=== PATIENT | female | born 1945 | race Caucasian/White ===

== ENCOUNTER → 2016-11-23 | Outpatient (CLI) | payer OTHER ==
[~2016-11-23] MED LIST: ATOR-24 PO; COEN75CA PO; FAMO40TA6 PO; METF-384 PO; MISCCAP80 PO; PANT40TA PO; SERT-234 PO
[2016-11-23 14:43] LABS: ESTIMATED AVERAGE GLUCOSE 148 mg/dl; HA1C FLAG Normal (Normal)
== END | disposition home or self-care (01) ==
LOC: C.LAB 13:16
PROVIDERS: ATTEND Internal Medicine
DX: E11.9 Type 2 diabetes mellitus without complications (principal)

== ENCOUNTER → 2017-05-06 | Outpatient (CLI) | payer OTHER ==
[2017-05-06 12:17] LABS: BASO % 0.7 %; BASO ABS # 0.04 K/uL (0-0.2); COMPLETE YES; EOS % 5.6 %; HEMATOCRIT 32.5 % (37-47); IG% 0.2 %; LYMPH % 33.2 %; LYMPH ABS # 1.85 K/uL (1.2-3.4); MEAN CELL VOLUME 85.5 fL (80-100); MEAN CORPUSCULAR HEMOGLOBIN 26.6 pg (25-34); MEAN CORPUSCULAR HGB CONC 31.1 g/dl (32-36); MEAN PLATELET VOLUME 11.8 fL (7.4-10.4); MONO % 9.1 %; NEUT % 51.2 %; PLATELET COUNT 248 K/uL (130-400); WHITE BLOOD COUNT 5.58 K/uL (4.8-10.8)
[2017-05-06 12:34] LABS: ESTIMATED AVERAGE GLUCOSE 148 mg/dl; HA1C FLAG Normal (Normal)
[2017-05-06 13:34] LABS: ALT/SGPT 20 U/L (12-78); AST/SGOT 20 U/L (15-37); BLOOD UREA NITROGEN 18 mg/dl (7-18); BUN/CREATININE RATIO 15.3 (10-20); CALCIUM 9.2 mg/dl (8.5-10.1); CARBON DIOXIDE 29 mmol/L (21-32); CHLORIDE 107 mmol/L (98-107); CHOLESTEROL 204 mg/dl (0-200); GLUCOSE 114 mg/dl (70-99); POTASSIUM 4.3 mmol/L (3.5-5.1); SODIUM 141 mmol/L (136-145); TRIGLYCERIDES 116 mg/dl (0-150); VERY LOW DENSITY LIPOPROT CALC 23 mg/dl
[2017-05-06 13:45] LABS: ALB/GLOB RATIO 1.1 (0.9-2); ALKALINE PHOSPHATASE 68 U/L (45-117); CHOLESTEROL/HDL RATIO 3.6; HDL CHOLESTEROL 56 mg/dl; LDL CHOLESTEROL CALCULATED 125 mg/dl
== END | disposition home or self-care (01) ==
LOC: C.LAB 10:33
PROVIDERS: ATTEND Internal Medicine
DX: E11.9 Type 2 diabetes mellitus without complications (principal)

== ENCOUNTER → 2017-06-09 | Outpatient (CLI) | payer OTHER ==
--- NOTE | 2017-06-09 15:51 | DIAGNOSTIC IMAGING REPORT ---
TWO VIEW CHEST CLINICAL HISTORY: Bronchitis. FINDINGS: PA and lateral chest radiographs are compared to study dated 11/21/2015. The cardiomediastinal silhouette is unremarkable. The mitral annulus is densely calcified. There is mild atherosclerotic calcification of the thoracic aorta. Chronic interstitial thickening is similar to previous. No airspace consolidation or pleural effusion is identified. There is no pneumothorax. The skeletal structures are osteopenic. The bony thorax appears intact. IMPRESSION: No active disease in the chest. Electronically signed by: Virgilio Mosquera M.D. 06/09/2017 3:50 PM Dictated Date/Time: 06/09/2017 3:49 PM
== END | disposition home or self-care (01) ==
LOC: C.RADBC 15:19
PROVIDERS: ATTEND Internal Medicine
DX: J20.8 Acute bronchitis due to other specified organisms (principal)

== ENCOUNTER → 2017-06-14 | Outpatient (CLI) | payer OTHER ==
--- NOTE | 2017-06-14 16:09 | MAMMOGRAPHY REPORT ---
BILATERAL DIGITAL SCREENING MAMMOGRAM WITH CAD: 06/14/2017 CLINICAL HISTORY: Routine screening. Patient has no complaints. TECHNIQUE: Bilateral CC and MLO views were obtained. Current study was also evaluated with a Compute r Aided Detection (CAD) system. COMPARISON: Comparison is made to exams dated: 06/09/2016 mammogram, 06/04/2015 mammogram, 05/29/2014 m ammogram, 05/02/2013 mammogram, 04/12/2012 mammogram, and 03/30/2011 mammogram - [facility] enter. BREAST COMPOSITION: There are scattered areas of fibroglandular density in both breasts. FINDINGS: There is possible architectural distortion in the lateral, middle one third of the left br east, only seen on the CC view, for which additional spot compression tomosynthesis views and possibl e ultrasound are recommended. No other suspicious mass, architectural distortion or cluster of microcalcifications is seen bilatera lly. IMPRESSION: ACR BI-RADS CATEGORY 0: INCOMPLETE EVALUATION: NEED ADDITIONAL IMAGING EVALUATION The possible architectural distortion in the lateral left breast needs additional evaluation. The patient will be called to schedule an appointment. Approximately 10% of breast cancers are not detected with mammography. A negative mammographic report should not delay biopsy if a clinically suggestive mass is present. Molly Chino M.D. ay/:06/14/2017 15:33:37 Head Host/Hostess: Paloma QUIJANO(R)(M), [facility] letter sent: Addl Imaging 0 BI-RADS Code: ACR BI-RADS Category 0: Incomplete Evaluation: Need Additional Imaging Evaluation
== END | disposition home or self-care (01) ==
LOC: C.MAMM 13:30
PROVIDERS: ATTEND Internal Medicine
DX: Z12.31 Encounter for screening mammogram for malignant neoplasm of breast (principal); R92.8 Other abnormal and inconclusive findings on diagnostic imaging of breast

== ENCOUNTER → 2017-07-06 | Outpatient (CLI) | payer OTHER ==
--- NOTE | 2017-07-06 15:19 | MAMMOGRAPHY REPORT ---
UNILATERAL LEFT DIGITAL DIAGNOSTIC MAMMOGRAM TOMOSYNTHESIS AND TARGETED LEFT ULTRASOUND: 07/06/2017 CLINICAL HISTORY: 72-year-old woman called back from screening mammography for possible architectural distortion in the lateral left breast. TECHNIQUE: Spot compression left CC and MLO 2-D and tomosynthesis images were obtained. COMPARISON: Comparison is made to exams dated: 06/14/2017 mammogram, 06/09/2016 mammogram, 06/04/2015 m ammogram, 05/29/2014 mammogram, 05/02/2013 mammogram, and 04/12/2012 mammogram - [facility] enter. BREAST COMPOSITION: There are scattered areas of fibroglandular density in the left breast. FINDINGS: The supplemental spot compression tomosynthesis views of the left breast demonstrate efface ment of the questionable architectural distortion in the lateral, middle one third of the breast. No asymmetry, suspicious mass or focal area of distortion is seen. Targeted ultrasound was performed in the superior and lateral left breast. Sonographically normal ti ssue is seen without a discrete solid or cystic mass. No focal area of architectural distortion is a ppreciated in real-time scanning. IMPRESSION: ACR BI-RADS CATEGORY 2: BENIGN, TARGETED ULTRASOUND ACR BI-RADS CATEGORY 2: BENIGN Effacement of the possible architectural distortion in the lateral left breast, with supplemental spo t compression tomosynthesis images, and no suspicious sonographic correlate identified. This finding most likely represented normal overlapping tissue. There is no mammographic or targeted sonographic evidence of malignancy. A 1 year screening mammogram is recommended. The patient has been verbally notified of the results. Approximately 10% of breast cancers are not detected with mammography. A negative mammographic report should not delay biopsy if a clinically suggestive mass is present. Molly Chino M.D. ay/:07/06/2017 10:53:38 Acquisition Analyst: Brooklynn Mccollum, [facility] letter sent: Normal 1/2 BI-RADS Code: ACR BI-RADS Category 2: Benign Ultrasound BI-RADS: ACR BI-RADS Category 2: Benign
== END | disposition home or self-care (01) ==
LOC: C.MAMM 10:04
PROVIDERS: ATTEND Internal Medicine
DX: N64.89 Other specified disorders of breast (principal)

== ENCOUNTER → 2017-08-31 | Outpatient (CLI) | payer OTHER ==
[2017-08-31 14:15] LABS: ESTIMATED AVERAGE GLUCOSE 148 mg/dl; HA1C FLAG Normal (Normal)
== END | disposition home or self-care (01) ==
LOC: C.LABBC 11:07
PROVIDERS: ATTEND Internal Medicine
DX: E11.9 Type 2 diabetes mellitus without complications (principal)

== ENCOUNTER → 2017-09-29 | Outpatient (CLI) | payer OTHER ==
--- NOTE | 2017-09-29 15:41 | EXERCISE STRESS ECHO ---
*NOTICE TO RECEIVING REPUBLICAN AGENCY This information is strictly Confidential and protected under [place] law. [place] law prohibits you from making any further disclosure of this information unless further disclosure is expressly permitted by the written consent of the person to whom it pertains or is authorized by law. A general authorization for the release of medical or other information is not sufficient for this purpose. Hospital accepts no responsibility if the information is made available to any other person, INCLUDING THE PATIENT. Interpretation Summary * Name: CLEVELAND VILLEGAS Study Date: 09/29/2017 09:44 AM BP: 112/71 mmHg * Patient Location: [facility] HR: 81 * : 1945 (M/d/yyyy) Gender: Female Height: 63 in * Age: 72 yrs Ethnicity: [place] Weight: 144 lb * Ordering Physician: Augusto Hubbard * Referring Physician: Augusto Hubbard * Performed By: Lizzette Odom RDCS * * Reason For Study: CHEST PRESSURE * BSA: 1.7 m2 * -- Conclusions -- * Stress Echo: * 1. Negative stress echo for ischemia at 111 % MPHR. * 2. Negative exercise ECG for ischemia at 111 % MPHR. * 3. Appropriate blood pressure response to exercise. * 4. No arrhythmia. * 5. Study terminated due to fatigue. No chest pain reported. * 6. Good exercise tolerance. * Echo: * 1. Normal left ventricular size and systolic function. EF 60-65%. No regional wall motion abnormalities. No left ventricular hypertrophy. Type 1 diastolic dysfunction. * 2. No significant valvular abnormalities. * 3. Normal estimated right ventricular systolic pressure. * 4. No prior study available for comparison. Procedure Details * ECHOEX, CPT #[id number] * ECHO DOPPLER, CPT #[id number] * ECHO COLOR FLOW, CPT #[id number] Left Ventricle * The left ventricle is normal in size. * There is normal left ventricular wall thickness. * Left ventricular systolic function is normal. * Resting wall motion: Normal. Stress wall motion: Appropriate increase in Left ventricular systolic function and decrease in cavity size. No stress induced segmental wall motion abnormalities. * The left ventricular ejection fraction increases normally with stress. The left ventricular end-systolic cavity size reduces post-stress (normal response). The left ventricular wall motion with stress is normal. * No regional wall motion abnormalities noted. Right Ventricle * The right ventricle is normal in size and function. * The right ventricular systolic function is normal as assessed by tricuspid annular plane systolic excursion (TAPSE) (normal >1.5 cm). Atria * The left atrial size is normal. * Right atrial size is normal. * There is no evidence of atrial septal defect, but resolution does not allow assessment for a patent foramen ovale. Mitral Valve * There is moderate mitral annular calcification. * There is no mitral valve stenosis. * There is trace mitral regurgitation. Tricuspid Valve * The tricuspid valve is normal. * There is no tricuspid stenosis. * There is trace tricuspid regurgitation. Aortic Valve * The aortic valve is trileaflet. * The aortic valve is normal in structure and function. * No hemodynamically significant valvular aortic stenosis. * No aortic regurgitation is present. Pulmonic Valve * The pulmonary valve is inadequately visualized, but the Doppler data is adequate for interpretation. * Trace pulmonic valvular regurgitation. Great Vessels * The aortic root is normal size. * Ascending aorta of normal dimension * Aortic arch of normal dimension. * Normal IVC size and inspiratory collapse. Pericardium * There is no pericardial effusion. Stress Parameters * NSR at 73 bpm. * Stress ECG: No ST changes. No arrhythmias. * No arrhythmia were noted with stress. * Rest heart rate was '81' BPM. * Rest blood pressure was '112/71' * Maximum heart rate achieved was 166 bpm. * Maximum heart rate was 111 % of maximum age-predicted heart rate. * Maximum blood pressure was '175/87' * Total exercise time was '6:31' * Maximum exercise MET level achieved was '7.7' METS * Maximum treadmill speed was '3.40' miles per hour. * Maximum treadmill elevation was '14.00'% grade. * Exercise was terminated due to 'fatigue' * Normal blood pressure response to exercise. * No symptoms during exercise. Target heart rate achieved. MMode 2D Measurements and Calculations IVSd 1.1 cm IVSs 2.0 cm LVIDd 4.5 cm LVIDs 3.1 cm LVPWd 0.90 cm LVPWs 1.5 cm IVS/LVPW 1.2 FS 31.7 % EDV(Teich) 93.5 ml ESV(Teich) 37.6 ml EF(Teich) 59.8 % EDV(cubed) 92.5 ml ESV(cubed) 29.5 ml EF(cubed) 68.1 % % IVS thick 82.6 % % LVPW thick 70.5 % LV mass(C)d 151.2 grams LV mass(C)dI 89.9 grams/m\S\2 LV mass(C)s 212.6 grams LV mass(C)sI 126.4 grams/m\S\2 SV(Teich) 55.9 ml SI(Teich) 33.3 ml/m\S\2 SV(cubed) 63.0 ml SI(cubed) 37.5 ml/m\S\2 Ao root diam 3.0 cm Ao root area 6.9 cm\S\2 ACS 1.7 cm LA dimension 3.6 cm asc Aorta Diam 2.9 cm LA/Ao 1.2 LVOT diam 1.8 cm LVOT area 2.6 cm\S\2 LVAd ap4 27.2 cm\S\2 LVLd ap4 7.5 cm EDV(MOD-sp4) 80.5 ml EDV(sp4-el) 83.1 ml LVAs ap4 15.5 cm\S\2 LVLs ap4 6.0 cm ESV(MOD-sp4) 32.6 ml ESV(sp4-el) 34.3 ml EF(MOD-sp4) 59.5 % EF(sp4-el) 58.7 % LVAd ap2 23.2 cm\S\2 LVLd ap2 7.7 cm EDV(MOD-sp2) 59.6 ml EDV(sp2-el) 59.7 ml LVAs ap2 12.5 cm\S\2 LVLs ap2 5.8 cm ESV(MOD-sp2) 21.0 ml ESV(sp2-el) 22.8 ml EF(MOD-sp2) 64.8 % EF(sp2-el) 61.8 % LVLd %diff 1.6 % EDV(MOD-bp) 69.7 ml LVLs %diff -2.70 % ESV(MOD-bp) 26.6 ml EF(MOD-bp) 61.8 % SV(MOD-sp4) 48.0 ml SI(MOD-sp4) 28.5 ml/m\S\2 SV(MOD-sp2) 38.6 ml SI(MOD-sp2) 23.0 ml/m\S\2 SV(MOD-bp) 43.1 ml SI(MOD-bp) 25.6 ml/m\S\2 SV(sp4-el) 48.8 ml SI(sp4-el) 29.0 ml/m\S\2 SV(sp2-el) 36.9 ml SI(sp2-el) 21.9 ml/m\S\2 Doppler Measurements and Calculations MV E max oren 107.8 cm/sec MV A max oren 131.0 cm/sec MV E/A 0.82 MV dec time 0.28 sec Ao V2 max 107.7 cm/sec Ao max PG 4.6 mmHg Ao max PG (full) 0.65 mmHg ILEANA(V,A) 2.4 cm\S\2 ILEANA(V,D) 2.4 cm\S\2 LV V1 max PG 4.0 mmHg LV V1 max 99.9 cm/sec MR max oren 465.6 cm/sec MR max PG 86.8 mmHg PA V2 max 67.9 cm/sec PA max PG 1.8 mmHg TR max oren 220.9 cm/sec RVSP(TR) 22.5 mmHg RAP systole 3.0 mmHg
== END | disposition home or self-care (01) ==
LOC: C.CPL 09:02
PROVIDERS: ATTEND Internal Medicine
DX: E11.9 Type 2 diabetes mellitus without complications (principal); R53.83 Other fatigue; R07.89 Other chest pain

== ENCOUNTER 2017-12-12 10:18 | Emergency (ER) | payer OTHER ==
[~2017-12-12] VITALS: Ht 157.5 cm; Wt 65.5 kg
[2017-12-12 10:22] VITALS: TEMP 36.8; Ht 157.5 cm; Wt 65.5 kg
--- NOTE | 2017-12-12 11:33 | DIAGNOSTIC IMAGING REPORT ---
L KNEE 3 VIEWS HISTORY: 72 years-old Female L low back pain/left hip pain into left knee acute left hip and left knee pain COMPARISON: None available TECHNIQUE: 3 views of the left knee FINDINGS: The bones appear mildly demineralized. Mild medial compartment and mild to moderate patellofemoral compartment osteoarthritis. No acute fracture, dislocation or large joint effusion. Moderate osteophyte noted along the superior pole of the patella at the quadriceps insertion site. Peripheral vascular disease. IMPRESSION: Degenerative changes without acute fracture. The above report was generated using voice recognition software. It may contain grammatical, syntax or spelling errors. Electronically signed by: Clem Marie M.D. 12/12/2017 11:31 AM Dictated Date/Time: 12/12/2017 11:30 AM
--- NOTE | 2017-12-12 11:35 | DIAGNOSTIC IMAGING REPORT ---
L PELVIS/UNILATERAL HIP 2-3VIEWS HISTORY: 72 years-old Female L low back pain/left hip pain into left knee acute left hip and low back pain COMPARISON: CT abdomen and pelvis 10/30/2015 TECHNIQUE: AP view the pelvis with 2 views of the left hip FINDINGS: The bones appear mildly demineralized. No pelvic ring fracture identified. Degenerative changes are seen within the lower lumbar spine and SI joints. Moderate degenerative changes of the bilateral femoral acetabular joints. No evidence of avascular necrosis, acute fracture or dislocation. Calcifications of the pelvis suggest phleboliths. IMPRESSION: Moderate degenerative changes of the bilateral hips without acute fracture or dislocation. The above report was generated using voice recognition software. It may contain grammatical, syntax or spelling errors. Electronically signed by: Clem Marie M.D. 12/12/2017 11:33 AM Dictated Date/Time: 12/12/2017 11:31 AM
--- NOTE | 2017-12-12 11:44 | DIAGNOSTIC IMAGING REPORT ---
L-SPINE MIN 4 VIEWS ROUTINE CLINICAL HISTORY: L low back pain/left hip pain into left knee. COMPARISON: None FINDINGS: There is a transitional vertebra at the lumbosacral junction which is designated as L5 on this exam. This is partially sacralized. There is 3 mm of anterolisthesis of L3 on L4 and 8 mm anterolisthesis of L4 and L5. There is no acute lumbar spine fracture. There is mild to moderate multilevel disc space narrowing and severe multilevel facet arthrosis. There is extensive plaque of the abdominal aorta. There is extensive mitral annular calcification. IMPRESSION: 1. No acute lumbar spine fracture. 2. Severe multilevel facet arthrosis and moderate multilevel degenerative disc disease. 3. Grade I anterolisthesis of L3 on L4 and L4 and L5, likely due to facet arthrosis. 4. Transitional vertebra at the lumbosacral junction. Please see above numbering scheme. Electronically signed by: Jus Nugent M.D. 12/12/2017 11:42 AM Dictated Date/Time: 12/12/2017 11:32 AM
[2017-12-12] MEDS ORDERED: METH4PAK PO (12:40)
--- NOTE | 2017-12-12 12:41 | EMERGENCY ROOM VISIT NOTE ---
History First contact with patient: 10:46 Chief Complaint: LEG PAIN,LEG INJURY Stated Complaint: PAIN, NUMBNESS LEFT HIP LEG KNEE History of Present Illness The patient is a 72 year old female who presents to the Emergency Room via private vehicle with complaints of "pain, numbness left hip, leg/knee". The patient states that she has been experiencing pain in the left gluteal region extending down the left leg since Tuesday. There has been no injury or trauma. She states that she had similar pain about 20 years ago and it was sciatica. She states that since that initial incident on Tuesday with the pain and left gluteal region there has been pain extending down the left leg on the anterior aspect. She states that it is worse with movement, and with ambulation sometimes her left knee will give out on her. She notes that the left leg feels slightly weaker but notes no other weakness in the upper extremity, lower extremity or trouble with speech. She notes pain as a 6/10 at times will go to an 8/10. She took Excedrin Migraine with minimal relief. She denies any abdominal pain. She notes that from a sitting position she has trouble standing because of the pain/weakness in the left leg. Review of Systems A complete 6-point Review of Systems was discussed with the patient, with pertinent positives and negatives listed in the History of Present Illness. All remaining Review of Systems questions can be considered negative unless otherwise specified. Past Medical/Surgical History Surgical Problems: (1) History of hysterectomy Family History Heart disease Social History Smoking Status: Never Smoker Alcohol Use: occasionally Marital Status: Housing Status: lives with significant other Occupation Status: employed Current/Historical Medications Scheduled Atorvastatin (Lipitor), 40 MG PO HS Coenzyme Q10 (Ubidecarenone) (Co Q-10), 200 MG PO HS Famotidine (Pepcid), 40 MG PO HS Metformin Hcl (Glucophage), 1,000 MG PO BID Methylprednisolone (Medrol Dosepak), 0 PO DAILY Pantoprazole (Protonix), 40 MG PO QAM Probiotic Product (Probiotic), 1 CAP PO QAM Sertraline (Zoloft), 100 MG PO HS Physical Exam Vital Signs Date Time Temp Pulse Resp B/P (MAP) Pulse Ox O2 Delivery O2 Flow Rate FiO2 12/12/17 12:53 77 16 172/80 98 12/12/17 11:57 85 16 172/80 99 Room Air 12/12/17 10:22 36.8 95 18 163/81 99 Room Air Physical Exam VITAL SIGNS - Vital signs and nursing notes were reviewed. Stable. Hypertensive. GENERAL -72-year-old female appearing her stated age who is in no acute distress. Communicates well with provider and answers questions appropriately. SKIN - Without rashes. No petechial rashes. LUNGS - Chest wall symmetric without accessory muscle use, intercostals retractions, or central cyanosis. Normal vesicular breath sounds CTA B/L. No wheezes, rales, or rhonchi appreciated. CARDIAC - RRR with S1/S2. No murmur, rubs, or gallops appreciated. EXTREMITIES - No clubbing or peripheral cyanosis. There is tenderness to palpation overlying the patient's left gluteal region extending down the left lateral anterior thigh to the location of the left knee. There is decreased strength in the patient's left lower extremity with ability to flex and extend the left knee. This illicits pain. She is vascularly intact with decreased tendon reflex at the patella on the left. Upper extremity tdp displays analyst strength excellent. NEURO: Other than the patellar reflex and strength of the left lower extremity, she is neurovascularly intact. Medical Decision & Procedures ER Provider Diagnostic Interpretation: L-SPINE MIN 4 VIEWS ROUTINE CLINICAL HISTORY: L low back pain/left hip pain into left knee. COMPARISON: None FINDINGS: There is a transitional vertebra at the lumbosacral junction which is designated as L5 on this exam. This is partially sacralized. There is 3 mm of anterolisthesis of L3 on L4 and 8 mm anterolisthesis of L4 and L5. There is no acute lumbar spine fracture. There is mild to moderate multilevel disc space narrowing and severe multilevel facet arthrosis. There is extensive plaque of the abdominal aorta. There is extensive mitral annular calcification. IMPRESSION: 1. No acute lumbar spine fracture. 2. Severe multilevel facet arthrosis and moderate multilevel degenerative disc disease. 3. Grade I anterolisthesis of L3 on L4 and L4 and L5, likely due to facet arthrosis. 4. Transitional vertebra at the lumbosacral junction. Please see above numbering scheme. Electronically signed by: Jus Nugent M.D. 12/12/2017 11:42 AM Dictated Date/Time: 12/12/2017 11:32 AM L PELVIS/UNILATERAL HIP 2-3VIEWS HISTORY: 72 years-old Female L low back pain/left hip pain into left knee acute left hip and low back pain COMPARISON: CT abdomen and pelvis 10/30/2015 TECHNIQUE: AP view the pelvis with 2 views of the left hip FINDINGS: The bones appear mildly demineralized. No pelvic ring fracture identified. Degenerative changes are seen within the lower lumbar spine and SI joints. Moderate degenerative changes of the bilateral femoral acetabular joints. No evidence of avascular necrosis, acute fracture or dislocation. Calcifications of the pelvis suggest phleboliths. IMPRESSION: Moderate degenerative changes of the bilateral hips without acute fracture or dislocation. The above report was generated using voice recognition software. It may contain grammatical, syntax or spelling errors. Electronically signed by: Clem Marie M.D. 12/12/2017 11:33 AM Dictated Date/Time: 12/12/2017 11:31 AM L KNEE 3 VIEWS HISTORY: 72 years-old Female L low back pain/left hip pain into left knee acute left hip and left knee pain COMPARISON: None available TECHNIQUE: 3 views of the left knee FINDINGS: The bones appear mildly demineralized. Mild medial compartment and mild to moderate patellofemoral compartment osteoarthritis. No acute fracture, dislocation or large joint effusion. Moderate osteophyte noted along the superior pole of the patella at the quadriceps insertion site. Peripheral vascular disease. IMPRESSION: Degenerative changes without acute fracture. The above report was generated using voice recognition software. It may contain grammatical, syntax or spelling errors. Electronically signed by: Clem Marie M.D. 12/12/2017 11:31 AM Dictated Date/Time: 12/12/2017 11:30 AM Medical Decision Patient was seen and evaluated as above. She presents to us today with radicular symptoms down her left leg consistent with that of likely sciatic nerve pain. She does have decreased reflexes on the left and decreased strength however she is able to axial load and ambulate. After obtaining a thorough history and physical examination the above work up was performed. I do not believe that emergent MRI is necessary at this time. No evidence of cauda equina. Basic x-rays were obtained. Degenerative changes noted. Results as above. These were discussed with the patient. I discussed the case with the attending physician. She is stable for outpatient management. She was offered pain medication and declined. She question whether steroids to be utilized and with her history of ulceration I do not recommend disuse. After event versus risk was discussed, it was decided with the patient that she would decide whether or not she could take these depending upon her progression. She is to follow with her family doctor. The patient was educated upon management, had questions answered prior to discharge, and was discharged home in good condition. I attest that I have personally reviewed the patient medication list. The patient's blood pressure was reviewed and was found to be elevated In the evaluation and treatment of this patient the following differential diagnoses were entertained: Sciatica, cauda equina syndrome, fracture, dislocation, CVA, among others. Impression Primary Impression: Sciatica of left side Departure Information Dispostion Home / Self-Care Condition GOOD Prescriptions Methylprednisolone (MEDROL DOSEPAK) 4 Mg Filiberto 0 PO DAILY, #1 PKT Prov: Kevin Spence PA-C 12/12/17 Referrals Augusto Hubbard M.D. (PCP) Rajinder Langford D.O. Sefter, John C., DO Patient Instructions My [facility] Additional Instructions You have been treated in the Emergency Department for Back Pain. You have been prescribed a Medrol Dosepak. Take this medication as prescribed. You should take the COMPLETE 6-day course of this medication. This is an anti- inflammatory medicine that will help to minimize your symptoms. For pain control, you can use the following [id number] medicines (if >12 yo): - Regular strength (325mg/tab) Tylenol (acetaminophen) 2 tabs every 4-6 hours as needed. Do not exceed 12 tablets in a 24 hour period. Avoid taking more than 3 grams (3000 mg) of Tylenol per day. This includes any other sources of acetaminophen you may take on a regular basis. If this is an acute injury, ice can be applied to the area of pain for the first 3 days to help decrease pain and inflammation. After the first 3 days, a heating pad can be used over the area for continued soothing relief. You should schedule a follow-up appointment in 2-3 days with your Primary Care Provider for further evaluation and treatment of your back pain. Return to the Emergency Department if your current symptoms worsen despite treatment course outlined above, or if you develop any of the following symptoms : intractable pain despite aforementioned treatment course, loss of control of your bowel or bladder, numbness or tingling in your groin, or development of a fever.
[2017-12-12 12:53] VITALS: BP 172/80; PULSE 77; O2SAT 98
== END 2017-12-12 12:54 | disposition home or self-care (01) ==
LOC: C.EDB 10:20 → C.EDD 12:54
DX: M54.32 Sciatica, left side (principal); M51.36 Other intervertebral disc degeneration, lumbar region; M43.16 Spondylolisthesis, lumbar region; Z79.84 Long term (current) use of oral hypoglycemic drugs; Z82.49 Family history of ischemic heart disease and other diseases of the circulatory system

== ENCOUNTER → 2017-12-21 | Outpatient (CLI) | payer OTHER ==
[~2017-12-21] MED LIST changes: +METH4PAK PO
--- NOTE | 2017-12-21 16:06 | DIAGNOSTIC IMAGING REPORT ---
LUMBAR SPINE W/O CONTRAST CLINICAL HISTORY: 72 years-old Female with M54.32 Sciatica of left sideacute onset left radicular pain with. Acute left-sided back pain with numbness of the bilateral feet COMPARISON: Lumbar spine radiographs 12/12/2017, CT abdomen and pelvis 10/30/2015. TECHNIQUE: Multiplanar, multi sequence MRI of the lumbar spine was performed without intravenous contrast. FINDINGS: No acute fracture, subluxation or significant focal bone marrow edema. Modic type I endplate changes of the inferior endplate of L1 and anteroinferior endplate T12. No acute paraspinal, intra-abdominal or intrapelvic abnormality identified. No aortic aneurysm or adenopathy. Signal within the imaged thoracic spinal cord appears unremarkable. Conus medullaris terminates at T12-L1. The cauda equina are within normal limits. Transitional lumbosacral anatomy redemonstrated with sacralization of the L5 segment. 4 mm anterolisthesis L3 on L4 and 8 mm L4 on L5, Unchanged and likely secondary to long-standing facet arthropathy. T12-L1: Mild disc desiccation with intervertebral disc space narrowing, small circumferential annular disc bulge with moderate facet arthrosis and ligamentum flavum thickening. There is flattening of the ventral thecal sac without significant central canal or foraminal narrowing. L1-L2: Mild to moderate intervertebral disc space narrowing with mild posterior spondylitic spurring, mild to moderate facet arthrosis with ligamentum flavum thickening and small bilateral facet effusions. Circumferential annular disc bulge flattens the ventral thecal sac. No central canal or foraminal narrowing. L2-L3: Moderate intervertebral disc space narrowing with 3 mm retrolisthesis L2 on L3. Posterior spondylitic spurring with posterior disc bulge, moderate facet arthrosis, ligamentum flavum thickening and small facet effusions. These changes cause mild central canal, mild left and mild to moderate right foraminal narrowing. L3-L4: Moderate intervertebral disc space narrowing with mild posterior spondylitic spurring, circumferential annular disc bulge and moderate to severe facet arthrosis with facet effusions and ligamentum flavum thickening. These changes cause moderate central canal, moderate to severe left and moderate right foraminal narrowing. L4-L5: Moderate intervertebral disc space narrowing with posterior spondylitic spurring, disc space uncovering with circumferential disc bulge. Severe facet arthrosis with ligamentum flavum thickening. Central canal is patent. Moderate right and moderate to severe left foraminal narrowing. L5-S1: Rudimentary disc disc space at this level without disc bulge, central canal or foraminal narrowing. Mild to moderate facet arthrosis. IMPRESSION: 1. Transitional lumbosacral anatomy as above with sacralization of the L5 segment. 2. Multilevel discogenic degenerative changes and facet arthrosis with disc bulging as detailed level by level above. 3. Multifactorial degenerative changes at the L3-L4 level result in moderate central canal, moderate to severe left and moderate right foraminal narrowing. 4. Areas of listhesis as above, likely secondary to long-standing facet arthrosis. The above report was generated using voice recognition software. It may contain grammatical, syntax or spelling errors. Electronically signed by: Clem Marie M.D. 12/21/2017 4:05 PM Dictated Date/Time: 12/21/2017 3:23 PM
== END | disposition home or self-care (01) ==
LOC: C.MRIBC 14:13
PROVIDERS: ATTEND Family Medicine Adult Medicine
DX: M54.32 Sciatica, left side (principal)